=== PATIENT | female | born 1930 | race Caucasian/White ===

== ENCOUNTER 2017-07-11 12:36 | Inpatient (IN) | payer MEDICARE ==
[~2017-07-11] VITALS: Ht 165.1 cm; Wt 78.0 kg
[2017-07-11 13:03] LABS: BASOPHIL % 0.5 % (0-2); PLATELET COUNT 261 x10^3mcL (130-400); RED CELL DISTRIBUTION WIDTH 13.1 % (11.5-14.5)
[2017-07-11 13:17] LABS: CALCIUM 8.8 mg/dL (8.5-10.1); CARBON DIOXIDE 30.9 mmol/L (21-32); CHLORIDE SERUM 107 mmol/L (98-107); CREATININE SERUM 1.4 mg/dL (0.6-1.0); GLUCOSE SERUM 202 mg/dL (74-106); POTASSIUM SERUM 4.4 mmol/L (3.5-5.1); SODIUM SERUM 141 mmol/L (136-145)
[2017-07-11 13:22] LABS: ALKALINE PHOSPHATASE 94 U/L (46-116); ALT/SGPT 19 U/L (14-59); AST/SGOT 17 U/L (15-37); BILIRUBIN TOTAL 0.3 mg/dL (0.20-1.00); TOTAL PROTEIN, SERUM 7.4 g/dL (6.4-8.2)
[2017-07-11 13:23] LABS: ALBUMIN 3.2 g/dL (3.4-5.0)
[2017-07-11] MEDS ORDERED: NOR10 PO (14:52)
[2017-07-11] MEDS ORDERED: ATENOLOL50 MG PO (14:52)
[2017-07-11] MEDS ORDERED: ASPIR 8181 MG PO (14:52)
[2017-07-11] MEDS ORDERED: LANTUS SOLOS100 U/M1 SQ (14:52)
[2017-07-11] MEDS ORDERED: PEPCID20 MG PO (14:53)
[2017-07-11] MEDS ORDERED: CLOPIDOGREL75 M1 PO (14:53)
[2017-07-11] MEDS ORDERED: COZAAR100 MG PO (14:53)
[2017-07-11] MEDS ORDERED: FERROUS SULFAT325 M2 PO (14:53)
[2017-07-11] MEDS ORDERED: PROAIR HFA8.5 GM IH (14:54)
[2017-07-11] MEDS ORDERED: SIMVASTATIN20 M1 PO (14:54)
[2017-07-11] MEDS ORDERED: PROBIOTIC1 EAC3 PO (14:54)
[2017-07-11] MEDS ORDERED: MIRALAX17 GM/Dose PO (14:54)
[2017-07-11 15:21] VITALS: BP 173/62
[2017-07-11 15:26] LABS: AMPHETAMINE QUAL UR NONE DETECTED (NEG <=1000)
[2017-07-11 15:49] LABS: T3 TOTAL 0.9 ng/mL
[2017-07-11 15:52] LABS: MAGNESIUM 2.4 mg/dL (1.8-2.4)
[2017-07-11 15:53] LABS: CHOLESTEROL/HDL RATIO 2.6
[2017-07-11 15:58] LABS: FREE T4 0.89 ng/dL (0.76-1.46); FREE THYROXINE INDEX 2.4 ug/dL (1.4-4.5); T4(THYROXINE) 7.2 ug/dL (4.7-13.3)
[2017-07-11 21:38] VITALS: BP 150/50
[2017-07-12 01:02] LABS: microscopic required? YES; urine erythrocyte TRACE (NEGATIVE)
[2017-07-12 06:21] VITALS: BP 149/48
[2017-07-12 07:11] LABS: BASOPHIL % 0.2 % (0-2); PLATELET COUNT 233 x10^3mcL (130-400); RED CELL DISTRIBUTION WIDTH 13.1 % (11.5-14.5)
[2017-07-12 08:07] LABS: CALCIUM 8.4 mg/dL (8.5-10.1); CARBON DIOXIDE 25.6 mmol/L (21-32); CHLORIDE SERUM 107 mmol/L (98-107); CREATININE SERUM 1.4 mg/dL (0.6-1.0); GLUCOSE SERUM 114 mg/dL (74-106); MAGNESIUM 2.2 mg/dL (1.8-2.4); PHOSPHOROUS 4.1 mg/dL (2.5-4.9); POTASSIUM SERUM 4.1 mmol/L (3.5-5.1); SODIUM SERUM 139 mmol/L (136-145)
[2017-07-12 09:05] VITALS: BP 136/47
[2017-07-12 13:05] VITALS: BP 135/51
[2017-07-12 18:19] VITALS: BP 140/50
[2017-07-12 20:43] VITALS: BP 138/51
[2017-07-13 05:22] VITALS: BP 152/53
[2017-07-13 08:57] LABS: BASOPHIL % 0.2 % (0-2); PLATELET COUNT 250 x10^3mcL (130-400); RED CELL DISTRIBUTION WIDTH 13.3 % (11.5-14.5)
[2017-07-13 09:04] LABS: CALCIUM 8.4 mg/dL (8.5-10.1); CARBON DIOXIDE 23.7 mmol/L (21-32); CHLORIDE SERUM 105 mmol/L (98-107); CREATININE SERUM 1.4 mg/dL (0.6-1.0); GLUCOSE SERUM 269 mg/dL (74-106); POTASSIUM SERUM 4.4 mmol/L (3.5-5.1); SODIUM SERUM 135 mmol/L (136-145)
[2017-07-13 09:20] VITALS: BP 149/63
[2017-07-13 13:33] VITALS: BP 150/51
[2017-07-13] MEDS ORDERED: LANCET DEVICE1 EACH MC ×2 (15:32→16:24)
[2017-07-13] MEDS ORDERED: TEST STRIPS1 EACH MC ×2 (15:32→16:23)
[2017-07-13] MEDS ORDERED: LEVEMIR100 U/M1 SQ ×2 (15:32→16:24)
[2017-07-13] MEDS ORDERED: LIPITOR40 MG PO (15:32)
[2017-07-13] MEDS ORDERED: GLIPIZIDE2.5 M1 PO ×2 (16:01→16:24)
[2017-07-13] MEDS ORDERED: ATORVASTATIN CA40 M1 PO (16:22)
[2017-07-13] MEDS ORDERED: LANTUS SOLOS100 U/M1 SQ ×2 (16:26→16:31)
[2017-07-13 16:29] VITALS: BP 150/51
== END 2017-07-13 19:00 | disposition home or self-care (01) | DRG 311 ==
LOC: ED 12:36 → DU 14:24
PROVIDERS: Emergency Medicine; Family Medicine; ADMIT Family Medicine
DX: I24.9 Acute ischemic heart disease, unspecified (principal); N17.0 Acute kidney failure with tubular necrosis; E44.1 Mild protein-calorie malnutrition; D68.69 Other thrombophilia; E87.1 Hypo-osmolality and hyponatremia; E11.65 Type 2 diabetes mellitus with hyperglycemia; E11.51 Type 2 diabetes mellitus with diabetic peripheral angiopathy without gangrene; E86.0 Dehydration; E83.51 Hypocalcemia; R33.8 Other retention of urine; K21.9 Gastro-esophageal reflux disease without esophagitis; D64.9 Anemia, unspecified; I10 Essential (primary) hypertension; Z79.84 Long term (current) use of oral hypoglycemic drugs; Z86.73 Personal history of transient ischemic attack (TIA), and cerebral infarction without residual deficits
CPT/HCPCS: 82962; 83880; 84439; J0696; J1644; J1815; J2405; J7030; Q0092

== ENCOUNTER 2017-07-14 13:08 | Emergency (ER) | payer MEDICARE ==
[~2017-07-14 13:08] MED LIST: ASPIR 8181 MG PO; ATENOLOL50 MG PO; ATORVASTATIN CA40 M1 PO; CLOPIDOGREL75 M1 PO; COZAAR100 MG PO; FERROUS SULFAT325 M2 PO; GLIPIZIDE2.5 M1 PO; LANCET DEVICE1 EACH MC; LANTUS SOLOS100 U/M1 SQ; LEVEMIR100 U/M1 SQ; LIPITOR40 MG PO; MIRALAX17 GM/Dose PO; NOR10 PO; PEPCID20 MG PO; PROAIR HFA8.5 GM IH; PROBIOTIC1 EAC3 PO; SIMVASTATIN20 M1 PO; TEST STRIPS1 EACH MC
[2017-07-14 14:40] LABS: CALCIUM 8.7 mg/dL (8.5-10.1); CARBON DIOXIDE 25.2 mmol/L (21-32); CHLORIDE SERUM 105 mmol/L (98-107); CREATININE SERUM 1.4 mg/dL (0.6-1.0); GLUCOSE SERUM 388 mg/dL (74-106); POTASSIUM SERUM 4.6 mmol/L (3.5-5.1); SODIUM SERUM 138 mmol/L (136-145)
[2017-07-14 14:44] LABS: ALKALINE PHOSPHATASE 79 U/L (46-116); ALT/SGPT 16 U/L (14-59); AST/SGOT 17 U/L (15-37); BILIRUBIN TOTAL 0.45 mg/dL (0.20-1.00); TOTAL PROTEIN, SERUM 7.1 g/dL (6.4-8.2)
[2017-07-14 14:45] LABS: ALBUMIN 3.1 g/dL (3.4-5.0)
[2017-07-14 14:47] LABS: BASOPHIL % 0.2 % (0-2); PLATELET COUNT 230 x10^3mcL (130-400); RED CELL DISTRIBUTION WIDTH 13.2 % (11.5-14.5)
[2017-07-14 14:50] LABS: microscopic required? YES; urine erythrocyte TRACE (NEGATIVE)
[2017-07-14 19:13] VITALS: BP 172/68
== END 2017-07-14 19:13 | disposition home or self-care (01) ==
LOC: ED 13:08
PROVIDERS: Emergency Medicine
DX: I13.0 Hypertensive heart and chronic kidney disease with heart failure and stage 1 through stage 4 chronic kidney disease, or unspecified chronic kidney disease (principal); E11.22 Type 2 diabetes mellitus with diabetic chronic kidney disease; N18.9 Chronic kidney disease, unspecified; I50.9 Heart failure, unspecified; I24.9 Acute ischemic heart disease, unspecified; Z88.6 Allergy status to analgesic agent; Z88.8 Allergy status to other drugs, medicaments and biological substances
CPT/HCPCS: 82962; 83880; J1815; J7030